=== PATIENT | female | born 1985 | race African-American/Black ===

== ENCOUNTER 2017-07-29 21:17 | Emergency (ER) | payer MEDICAID, SELFPAY ==
[2017-07-29 22:01] LABS: Bilirubin Negative (Negative); Blood, Urine Moderate (Negative); Clarity Cloudy (Clear); Glucose, Urine (Dipstick) Negative (Negative); Leukocyte Small (Negative); Nitrite Negative (Negative); Protein, Urine (Dipstick) 100 mg/dL (Neg-Trace); RBC/HPF 21-50 HPF (0-3); Specific Gravity, Urine 1.025 (1.005-1.030); Urobilinogen 0.2 mg/dL (0.2-1.0)
[2017-07-29 22:02] LABS: Bacteria/HPF 1+ HPF (None Seen); Hyaline Casts/LPF NONE SEEN LPF (0-3 Hyaline)
[2017-08-01 03:48] LABS: Chlamydia by PCR Not Detected (NotDetected); GC by PCR Not Detected (NotDetected)
== END 2017-07-29 22:57 | disposition home or self-care (01) ==
LOC: SCSER 21:17
DX: N39.0 Urinary tract infection, site not specified (principal)
CPT/HCPCS: 81003; 81015; 87077; 87086; 87186; 87480; 87491; 87510; 87591; 87660; 99284

== ENCOUNTER 2017-08-02 07:54 | Emergency (ER) | payer MEDICAID | END 2017-08-02 09:06 | disposition left against medical advice (07) | LOC: ERS 07:54 | DX: Z53.21 Procedure and treatment not carried out due to patient leaving prior to being seen by health care provider (principal) ==

== ENCOUNTER 2017-09-25 15:29 | Emergency (ER) | payer MEDICAID, SELFPAY ==
[2017-09-25 16:02] LABS: Bilirubin Negative (Negative); Blood, Urine Negative (Negative); Clarity CLOUDY (Clear); Glucose, Urine (Dipstick) Negative (Negative); Leukocyte Negative (Negative); Nitrite Negative (Negative); Protein, Urine (Dipstick) Negative (Neg-Trace); Specific Gravity, Urine 1.022 (1.002-1.036); Urobilinogen 0.2 mg/dL (0.2-1.0)
[2017-09-25 16:03] LABS: Pregnancy Test - Urine (BHCG) Negative (Negative); Pregu Control Background? CLEAR/WHITE (CLR/WHITE); Pregu Control Bar Appear? YES (CONTROL BAR); Specific Gravity 1.022 (1.002-1.036)
[2017-09-25] MEDS ORDERED: Ondansetron ODT 4 MG TAB ONE (16:20)
[2017-09-25] MEDS ORDERED: Dicyclomine 20 MG TAB ONE (16:20)
[2017-09-25] MEDS ORDERED: Ketorolac Tromethamine 30 MG/ML VIAL ONE (16:41)
== END 2017-09-25 17:50 | disposition home or self-care (01) ==
LOC: ERS 15:29
DX: R10.32 Left lower quadrant pain (principal); R10.31 Right lower quadrant pain; F32.9 Major depressive disorder, single episode, unspecified
CPT/HCPCS: 81003; 81025; 93005; 96372; J1885; Q0162

== ENCOUNTER 2018-06-18 19:48 | Emergency (ER) | payer SELFPAY | END 2018-06-18 20:35 | disposition home or self-care (01) | LOC: ERS 19:48 | DX: L02.211 Cutaneous abscess of abdominal wall (principal); F32.9 Major depressive disorder, single episode, unspecified | CPT/HCPCS: 99282 ==

== ENCOUNTER 2019-03-27 10:17 | Emergency (ER) | payer SELFPAY ==
[2019-03-27] MEDS ORDERED: Ondansetron ODT 4 MG TAB ONE (11:17)
--- NOTE | 2019-03-27 11:34 | RAD ---
EXAM: Chest PA and lateral: HISTORY: Cough COMPARISON: 10/06/2012 FINDINGS: Heart: Normal cardiac silhouette Aorta: Unremarkable Pulmonary vessels: Normal Costophrenic angles: Costophrenic angles are clear. Lungs: No consolidation or masses. Pneumothorax: No pneumothorax Osseous structures: No osseous abnormalities IMPRESSION: No acute cardiopulmonary process.
== END 2019-03-27 11:54 | disposition home or self-care (01) ==
LOC: ERS 10:17
DX: J02.8 Acute pharyngitis due to other specified organisms (principal); B97.89 Other viral agents as the cause of diseases classified elsewhere; F32.9 Major depressive disorder, single episode, unspecified
CPT/HCPCS: 71046; Q0162

== ENCOUNTER 2019-08-28 07:40 | Emergency (ER) | payer OTHER, SELFPAY ==
[2019-08-28] MEDS ORDERED: Acetaminophen 500 MG TAB ONE (08:20)
--- NOTE | 2019-08-28 08:39 | RAD ---
Exam: Chest one view HISTORY:Cough. Fever. Body ache, x4 days Comparison: 03/27/2019 FINDINGS: Cardiac silhouette: Normal Aorta: Unremarkable Pulmonary vessels: Normal Costophrenic angles: Clear LUNGS: No masses or consolidation. Pneumothorax: None Osseous abnormalities: None IMPRESSION: No acute cardiopulmonary process.
[2019-08-28] MEDS ORDERED: Ondansetron ODT 4 MG TAB ONE (08:49)
[2019-08-28 09:28] LABS: Hemoglobin 13.2 g/dL (12.0-16.0); Mean Corpuscular HGB CONC 31.8 g/dL (32.0-36.0); Mean Corpuscular Hemoglobin 28.9 pg (27.0-31.0); Mean Platelet Volume 8.6 fL (7.4-10.4); Platelet Count 222 thou/uL (130-400); RBC Distribution Width 13.2 % (11.5-14.5); Red Blood Cell (RBC) Count 4.58 mill/uL (4.20-5.40); White Blood Cell (WBC) Count 3.5 thou/uL (4.8-10.8)
[2019-08-28] MEDS ORDERED: Ketorolac Tromethamine 30 MG/ML VIAL ONE (09:31)
[2019-08-28 09:53] LABS: ALT (SGPT) 16 U/L (8-55); AST (SGOT) 24 U/L (5-34); Albumin 3.7 g/dL (3.5-5.0); Alkaline Phosphatase 60 U/L (40-110); Anion Gap 12 mmol/L (10-20); BUN (Urea Nitrogen) 10 mg/dL (7.0-18.7); Band 5 % (5-11); Bilirubin, Total Less than 0.2 mg/dL (0.2-1.2); CK (CPK) 207 U/L (29-168); Calc. Creatinine Clearance 0 mL/min (70-130); Calcium 8.5 mg/dL (7.8-10.44); Carbon Dioxide 24 mmol/L (22-29); Chloride 106 mmol/L (98-107); Eosinophils 2 % (0-10); Estimated GFR-MDRD Greater than 90; Globulin 3.3 g/dL (2.4-3.5); Glucose 85 mg/dL (70-105); Lymphocytes 41 % (21-51); MDiff Complete? YES; Monocytes 13 % (0-10); Neutrophil 39 % (42-75); Platelet Morphology Comment Appears Adequate; RBC Morphology Normal; Sodium 138 mmol/L (136-145)
[2019-08-28 18:03] LABS: SARS-CoV-2 MS2 Positive; SARS-CoV-2 N Gene Positive; SARS-CoV-2 S Gene Positive; SARS-CoV-2 orf1ab Positive
== END 2019-08-28 10:42 | disposition home or self-care (01) ==
LOC: ERS 07:40
DX: U07.1 COVID-19 (principal); R05 Cough; R11.0 Nausea; R52 Pain, unspecified; J39.9 Disease of upper respiratory tract, unspecified; F32.9 Major depressive disorder, single episode, unspecified
CPT/HCPCS: 36415; 71045; 80053; 82550; 85025; 87635; 87804; 96372; J1885; Q0162; U0003

== ENCOUNTER 2021-10-15 11:47 | Emergency (ER) | payer OTHER, SELFPAY ==
[~2021-10-15 11:47] MED LIST: Iopamidol-370 76% 500 ML 1 ML ONE
[2021-10-15 12:23] LABS: #Eosinphils 0.1 thou/uL (0.0-0.7); #Monocytes 0.5 thou/uL (0.11-0.59); #Neutrophils 2.2 thou/uL (1.40-6.50); %Eosinophils 1.9 % (0.0-10.0); %Lymphocytes 41.4 % (21.0-51.0); %Monocytes 9.5 % (0.0-10.0); %Neutrophils 46.2 % (42.0-75.0); Hemoglobin 13.6 g/dL (12.0-16.0); Mean Corpuscular HGB CONC 31.3 g/dL (32.0-36.0); Mean Corpuscular Hemoglobin 29.8 pg (27.0-31.0); Mean Corpuscular Volume 95.2 fL (78.0-98.0); Mean Platelet Volume 8.4 fL (7.4-10.4); Platelet Count 232 thou/uL (130-400); RBC Distribution Width 13.1 % (11.5-14.5); Red Blood Cell (RBC) Count 4.56 mill/uL (4.20-5.40); White Blood Cell (WBC) Count 4.8 thou/uL (4.8-10.8)
[2021-10-15 12:28] LABS: Bilirubin Negative (Negative); Blood, Urine Negative (Negative); Glucose, Urine (Dipstick) Normal (Negative); Ketone, Urine Negative (Negative); Leukocyte Negative Leu/uL (Negative); Nitrite Negative (Negative); Protein, Urine (Dipstick) Negative (Neg-Trace); Specific Gravity, Urine 1.018 (1.002-1.036); Urobilinogen Normal mg/dL (Less than 2)
[2021-10-15 12:33] LABS: Clarity Hazy (Clear)
[2021-10-15 12:37] LABS: Pregnancy Test - Urine (BHCG) Negative (Negative); Pregu Control Background? CLEAR/WHITE (CLR/WHITE); Pregu Control Bar Appear? YES (CONTROL BAR); Specific Gravity 1.018 (1.002-1.036)
[2021-10-15 12:44] LABS: ALT (SGPT) 18 U/L (8-55); AST (SGOT) 24 U/L (5-34); Albumin 3.5 g/dL (3.5-5.0); Alkaline Phosphatase 54 U/L (40-110); Anion Gap 11 mmol/L (10-20); BUN (Urea Nitrogen) 9 mg/dL (7.0-18.7); Bilirubin, Total 0.8 mg/dL (0.2-1.2); Calc. Creatinine Clearance 0 mL/min (70-130); Calcium 9.1 mg/dL (7.8-10.44); Carbon Dioxide 26 mmol/L (22-29); Chloride 106 mmol/L (98-107); Estimated GFR 94; Globulin 2.7 g/dL (2.4-3.5); Glucose 81 mg/dL (70-105); Potassium 4.1 mmol/L (3.5-5.1); Protein, Total 6.2 g/dL (6.0-8.3); Sodium 139 mmol/L (136-145)
[2021-10-15] MEDS ORDERED: Ibuprofen 200 MG TAB ONE (14:09)
[2021-10-15] MEDS ORDERED: Ondansetron PF 4 MG/2 ML Vial ONE (15:43)
[2021-10-15] MEDS ORDERED: Morphine 4 MG/ML VIAL ONE (15:43)
[2021-10-15] MEDS ORDERED: Acetaminophen 500 MG TAB ONE (17:10)
== END 2021-10-15 17:22 | disposition home or self-care (01) ==
LOC: ERS 11:47
DX: R10.9 Unspecified abdominal pain (principal); R10.814 Left lower quadrant abdominal tenderness
CPT/HCPCS: 36415; 74177; 80053; 81003; 81025; 85025; 96374; 96375; J2270; J2405; Q9967

== ENCOUNTER 2022-03-19 10:12 | Emergency (ER) | payer SELFPAY ==
[2022-03-19] MEDS ORDERED: diphenhydrAMINE 50 MG/ML VIAL ONE (12:09)
[2022-03-19] MEDS ORDERED: Metoclopramide HCl 10 MG/2 ML VIAL ONE (12:09)
[2022-03-19 12:43] LABS: #Basophils 0.1 thou/uL (0.0-0.2); #Eosinphils 0.1 thou/uL (0.0-0.7); #Lymphocytes 1.9 thou/uL (1.20-3.40); #Monocytes 0.5 thou/uL (0.11-0.59); #Neutrophils 2.3 thou/uL (1.40-6.50); %Basophils 1.1 % (0.0-1.0); %Eosinophils 1.4 % (0.0-10.0); %Lymphocytes 39.5 % (21.0-51.0); %Monocytes 9.5 % (0.0-10.0); %Neutrophils 48.5 % (42.0-75.0); Hemoglobin 13.5 g/dL (12.0-16.0); Mean Corpuscular Hemoglobin 30.2 pg (27.0-31.0); Mean Corpuscular Volume 94.2 fl (78.0-98.0); Mean Platelet Volume 8.8 fL (7.4-10.4); Platelet Count 260 10x3/uL (130-400); RBC Distribution Width 12.7 % (11.5-14.5); Red Blood Cell (RBC) Count 4.48 mill/uL (4.20-5.40); White Blood Cell (WBC) Count 4.7 10x3/uL (4.8-10.8)
[2022-03-19 13:01] LABS: ALT (SGPT) 16 U/L (8-55); AST (SGOT) 17 U/L (5-34); Albumin 4.1 g/dL (3.5-5.0); Alkaline Phosphatase 70 U/L (40-110); Anion Gap 9 mmol/L (10-20); BUN (Urea Nitrogen) 15 mg/dL (7.0-18.7); Bilirubin, Total 0.3 mg/dL (0.2-1.2); Calc. Creatinine Clearance 0 mL/min (70-130); Calcium 9.3 mg/dL (7.8-10.44); Carbon Dioxide 27 mmol/L (22-29); Estimated GFR 99; Globulin 3.1 g/dL (2.4-3.5); Glucose 79 mg/dL (70-105); Protein, Total 7.2 g/dL (6.0-8.3); Sodium 138 mmol/L (136-145)
[2022-03-19 13:02] LABS: Chloride 106 mmol/L (98-107)
== END 2022-03-19 13:30 | disposition home or self-care (01) ==
LOC: ERS 10:12
DX: J32.9 Chronic sinusitis, unspecified (principal)
CPT/HCPCS: 80053; 85025; 96365; 96375; J1200; J2765

== ENCOUNTER 2022-10-17 16:55 | Emergency (ER) | payer SELFPAY ==
[~2022-10-17 16:55] MED LIST changes: -Iopamidol-370 76% 500 ML 1 ML ONE; +Iopamidol-370 76% 500 ML MDV (1 ML CHARGE) ONE
[2022-10-17 17:42] LABS: #Eosinphils 0.1 thou/uL (0.0-0.7); #Monocytes 0.6 thou/uL (0.11-0.59); %Basophils 0.5 % (0.0-1.0); %Monocytes 10.2 % (0.0-10.0); %Neutrophils 51.3 % (42.0-75.0); Hemoglobin 12.2 g/dL (12.0-16.0); Mean Corpuscular HGB CONC 33.2 g/dL (32.0-36.0); Mean Corpuscular Hemoglobin 29.5 pg (27.0-31.0); Mean Corpuscular Volume 89.1 fl (78.0-98.0); Mean Platelet Volume 10.6 fL (7.4-10.4); Platelet Count 295 10x3/uL (130-400); Red Blood Cell (RBC) Count 4.13 mill/uL (4.20-5.40); White Blood Cell (WBC) Count 5.8 10x3/uL (4.8-10.8)
[2022-10-17 18:11] LABS: ALT (SGPT) 11 U/L (8-55); AST (SGOT) 17 U/L (5-34); Alkaline Phosphatase 63 U/L (40-110); Anion Gap 15 mmol/L (10-20); BUN (Urea Nitrogen) 12 mg/dL (7.0-18.7); Bilirubin, Total 0.6 mg/dL (0.2-1.2); CK (CPK) 226 U/L (29-168); Calc. Creatinine Clearance 0 mL/min (70-130); Calcium 9.3 mg/dL (7.8-10.44); Carbon Dioxide 20 mmol/L (22-29); Chloride 109 mmol/L (98-107); Estimated GFR 60; Globulin 3.1 g/dL (2.4-3.5); Glucose 90 mg/dL (70-105); Lipase 38 U/L (8-78); Potassium 3.5 mmol/L (3.5-5.1); Protein, Total 7.1 g/dL (6.0-8.3); Sodium 140 mmol/L (136-145)
[2022-10-17] MEDS ORDERED: Ketorolac Tromethamine 30 MG/ML VIAL ONE (18:47)
[2022-10-17] MEDS ORDERED: Ondansetron PF 4 MG/2 ML Vial ONE (21:52)
[2022-10-17 22:56] LABS: Troponin I Less than 0.010 ng/mL (< 0.028)
== END 2022-10-17 23:10 | disposition home or self-care (01) ==
LOC: ERS 16:55
DX: R07.9 Chest pain, unspecified (principal)
CPT/HCPCS: 36415; 71045; 71275; 80053; 82550; 83690; 84484; 85025; 93005; 96374; 96375; J1885; J2405; Q9967

== ENCOUNTER 2024-05-05 14:33 | Emergency (ER) | payer SELFPAY ==
[2024-05-05] MEDS ORDERED: Metoclopramide HCl 10 MG (2 mL) VIAL ONE (15:34)
[2024-05-05] MEDS ORDERED: Dexamethasone 10 MG/ML VIAL ONE (15:34)
[2024-05-05] MEDS ORDERED: diphenhydrAMINE 50 MG/ML VIAL ONE (15:34)
[2024-05-05] MEDS ORDERED: Ketorolac Tromethamine 30 MG (1 mL) VIAL ONE (15:34)
== END 2024-05-05 17:10 | disposition home or self-care (01) ==
LOC: ERS 14:33
DX: R05.9 Cough, unspecified (principal); R51.9 Headache, unspecified
CPT/HCPCS: 96374; 96375; J1100; J1200; J1885; J2765